=== PATIENT | male | born 1940 | race Caucasian/White ===

== ENCOUNTER 2017-01-18 07:50 | Day surgery (SDC) | payer MEDICARE ==
[~2017-01-18] VITALS: Ht 166.4 cm; Wt 65.9 kg
[2017-01-18] VITALS (8 sets, daily range): BP systolic 120–211; BP diastolic 62–87; PULSE 52–74; RESP 16–20; TEMP 97.6–97.7; O2SAT 87–97
[~2017-01-18 07:50] MED LIST: CILO100T PO; GLUCTAB PO; ISOS60TA PO; LISI30TA44 PO; SIMV40TA PO; SITA100 PO; TREN400T PO
[2017-01-18] MEDS ORDERED: ASPI81CH CHEW (08:12)
[2017-01-18] MEDS ORDERED: CLOP75TA PO (08:12)
[2017-01-18] MEDS ORDERED: GLIM4TAB PO (08:12)
[2017-01-18] MEDS ORDERED: GABA300C5 PO (08:12)
[2017-01-18] MEDS ORDERED: SIMV40TA PO (08:12)
[2017-01-18] MEDS ORDERED: SODIUM CHLOR 0.9% 1000 ML INJ 1,000 ML IV SCH (08:30)
[2017-01-18] MEDS ORDERED: LIDOCAINE 1%/EPINEPHrine 1:100,000 SOLN 20 ML VIAL ONE (08:32)
[2017-01-18] MEDS ORDERED: SODIUM BICARBONATE 8.4% INJ 50 ML ONE (08:33)
[2017-01-18 08:48] LABS: AUTOMATED NEUTROPHIL # 5.2 TH/MM3 (1.8-7.7); BASOPHIL # 0.1 TH/MM3 (0-0.2); BASOPHIL % 1.2 % (0.0-2.0); EOSINOPHIL # 0.2 TH/MM3 (0-0.4); HEMATOCRIT 44.9 % (39.0-51.0); HEMO FLAGS DIFF FINAL; LYMPH % 23.2 % (9.0-44.0); LYMPHOCYTE # 1.8 TH/MM3 (1.0-4.8); MEAN CELL VOLUME 89.7 FL (80.0-100.0); MEAN CORPUSCULAR HEMOGLOBIN 29.3 PG (27.0-34.0); MEAN CORPUSCULAR HGB CONC 32.7 % (32.0-36.0); MONO % 6.7 % (0.0-8.0); NEUT % 65.9 % (16.0-70.0); PLATELET COUNT 146 TH/MM3 (150-450); RED BLOOD COUNT 5.01 MIL/MM3 (4.50-5.90); RED CELL DISTRIBUTION WIDTH 16.1 % (11.6-17.2); WHITE BLOOD COUNT 7.9 TH/MM3 (4.0-11.0)
[2017-01-18 08:53] LABS: APTT (PATIENT) 26.4 SEC (24.3-30.1); PROTHROMBIN TIME - PATIENT 10.7 SEC (9.8-11.6)
[2017-01-18] MEDS ORDERED: fentaNYL CITRATE 250 MCG/5 ML AMP ONE (09:13)
[2017-01-18] MEDS ORDERED: MIDAZOLAM HCL 5 MG/5 ML VIAL ONE (09:13)
--- NOTE | 2017-01-18 10:08 | PD.RAD ---
Post CT Procedure Prog Note Pre Procedure Diagnosis: (1) Mass of right lung Post Procedure Diagnosis: (1) Mass of right lung Procedure Date: Jan 18, 2017 Supervising Radiologist: Gera Nieves Proceduralist/Assist: Lesly Howard RT(R)(CT) Estimated blood loss: Minimal Anesthesia: Conscious Sedation Plan of Activity [facility] Patient Condition: Good Additional Comments: 4 20G core samples taken See PACS Report for procedural detail/treatment Biopsy Side: Right Biopsy Procedure: Lung Site: Right upper lobe Specimen: Core Biopsy Findings: 4 20G core samples taken Plan To Gera Grullon MD Jan 18, 2017 10:08
--- NOTE | 2017-01-18 10:24 | RADRPT ---
EXAM DATE/TIME: 01/18/2017 09:28 [facility] COMPARISON: No previous studies available for comparison. INDICATIONS : Right lung mass. SEDATION TIME: 40 minutes BIOPSY SITE: Right lung MEDICATION(S): 1.) 3 mg midazolam (Versed) IV 2.) 150 mcg fentanyl (Sublimaze) IV DEVICE(S): 1.) 18 gauge Berger blunt needle 10cm 2.) 20 gauge Temno core biopsy needle 15cm MEDICAL HISTORY : Smoker SURGICAL HISTORY : None. ENCOUNTER: Initial ACUITY: 1 day PAIN SCORE: 0/10 LOCATION: Right chest A total of four core specimen(s) were obtained and sent to the laboratory for pathologic evaluation. PROCEDURE: 1. CT guided lung biopsy. 2. Conscious sedation with continuous EKG and oximetry monitoring. Prior to the procedure informed consent was obtained. The patient's outside CT examination was review ed. Using automated exposure control and adjustment of the mA and/or kV according to patient size, ra diation dose was kept as low as reasonably achievable to obtain optimal diagnostic quality images. The site was prepped in a sterile fashion. Full sterile technique was used, including cap, mask, kori rile gloves and gown and a large sterile sheet. Hand hygiene and 2% chlorhexidine and/or betadine/al cohol prep was utilized per protocol for cutaneous antisepsis. The skin and subcutaneous tissues wer e infiltrated with local anesthetic solution. With CT guidance the previously identified target was localized. Biopsy was performed using the presc ribed needle as above. Adequate hemostasis was obtained with compression at the puncture site. Follow-up CT scan reveals no pneumothorax. Conscious sedation was performed with the prescribed dosages and duration as above in the presence of an independent trained radiology nurse to assist in the monitoring of the patient. EKG and oximetry remained stable throughout the procedure. The patient tolerated the procedure well and there were no complications. The patient was sent to Radiology Outpatient Unit in stable condition. CONCLUSION: Uncomplicated CT guided biopsy of the right upper lobe lung mass. Gera Nieves MD on January 18, 2017 at 10:21 Board Certified Radiologist. This report was verified electronically.
[2017-01-18] MEDS ORDERED: oxyCODONE/ACETAMINOPHEN 5 MG/325 MG TAB PO PRN (10:30)
--- NOTE | 2017-01-18 11:52 | RADRPT ---
EXAM DATE/TIME: 01/18/2017 11:20 [facility] COMPARISON: CT NEEDLE BIOPSY LUNG, RIGHT, January 18, 2017, 9:28. INDICATIONS : Post right side bx MEDICAL HISTORY : smoker SURGICAL HISTORY : None. ENCOUNTER: Initial ACUITY: 1 day PAIN SCORE: 0/10 LOCATION: Bilateral chest FINDINGS: A single frontal expiratory view of the chest was performed. Ill-defined airspace disease in the righ t upper lobe corresponding to the region of biopsied lung nodule likely reflecting small amount of bl ood products. Very subtle regional pneumothorax similar to the postprocedural CT. Cardia sternal cont ours are within normal limits. Ill-defined sclerotic lesion in the proximal right humerus may reflect an enchondroma. CONCLUSION: 1. No significant pneumothorax status post right upper lobe lung mass biopsy. Maxim Hughes MD on January 18, 2017 at 11:45 Board Certified Radiologist. This report was verified electronically.
--- NOTE | 2017-01-18 13:51 | RADRPT ---
EXAM DATE/TIME: 01/18/2017 13:24 [facility] COMPARISON: CT NEEDLE BIOPSY LUNG, RIGHT, January 18, 2017, 9:28. CHEST EXPIRATION ONLY, January 18, 2017, 11:20. INDICATIONS : Evalaute for pneumothorax. MEDICAL HISTORY : Hypertension. Diabetes mellitus type II. Smoker. SURGICAL HISTORY : ENCOUNTER: Subsequent ACUITY: 1 day PAIN SCORE: 2/10 LOCATION: Right chest FINDINGS: The exam demonstrates a small mass in the right midlung field. There is no pneumothorax identified po st biopsy. There surgical clips within the right axilla. The exam is stable compared to previous. 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 CONCLUSION: 1. No pneumothorax identified following biopsy. Josue Espana MD on January 18, 2017 at 13:48 Board Certified Radiologist. This report was verified electronically.
== END 2017-01-18 14:55 | disposition home or self-care (01) ==
LOC: HRAD 07:50 → HRIP 07:57 → HRAD 14:55
PROVIDERS: ATTEND Internal Medicine
DX: C34.11 Malignant neoplasm of upper lobe, right bronchus or lung (principal); Z01.818 Encounter for other preprocedural examination; F17.200 Nicotine dependence, unspecified, uncomplicated
CPT/HCPCS: 32405; 71010; 77012; 85025; 85610; 85730; 88305; 88341; 88342; J2250; J3010; J7030